=== PATIENT | female | born 1950 | race Caucasian/White ===

== ENCOUNTER → 2016-09-18 | Outpatient (CLI) | payer MEDICARE ==
[~2016-09-18] MED LIST: ASA CHILDREN'S81 MG PO; BACITRACIN15 G1 TP; CENTRUM SILVER1 EAC4 PO; COLACE-DPS100 MG PO; FLEXERIL DPS5 MG PO; HAIR SKIN NAIL1 EACH PO; HARD NAILS2500 MCG PO; NORCO 5-325 TA1 EACH PO; TYLENOL DPS325 MG PO; ZESTORETIC 20/11 TAB PO; ZOCOR DPS40 MG PO
== END | disposition home or self-care (01) ==
LOC: PTH.S 12:10
DX: Z01.818 Encounter for other preprocedural examination (principal)

== ENCOUNTER 2016-09-25 05:30 | Inpatient (IN) | payer MEDICARE ==
[~2016-09-25] VITALS: Ht 167.6 cm; Wt 85.0 kg
--- NOTE | ~2016-09-25 | DS ---
ADMIT: 09/25/2016 RM/LOC: [address] [facility] MR#: [id number] ACC#: [id number] [address] [facility] [address] [place] [id number] [address] [place] [address] Discharge Summary SEX: F AGE: 66 : 1950 ADMISSION DATE: 09/25/2016 DISCHARGE DATE: 09/28/2016 REASON FOR ADMISSION: 1. Lumbar stenosis with radiculopathy. 2. Lumbar spondylolisthesis. 3. Trauma. 4. Right hip pain. PROCEDURE: Transforaminal lumbar interbody fusion at L4-S1. HOSPITAL COURSE: Ms Rios tolerated her procedure well. Postoperatively, she was taken to the med/surg floor for monitoring and care. Postop day #1, she was awake, alert. She was afebrile, and her vital signs were stable. She was moving all extremities x4 with 5/5 strength. Her dressing was clean, dry, and intact. Her On-Q was patent. Her TIMA drain was patent with serosanguineous drainage. She was working with Physical Therapy and Occupational Therapy and tolerating this quite well. Postop day #2, she was awake and alert. She was afebrile and her vital signs were stable. She was moving all extremities x4. Her incision was clean, dry, and intact. Her On-Q was patent. Her TIMA drain was patent with serosanguineous drainage. Her On-Q was DC'd when it was empty. She continued to work with Physical Therapy and tolerated this quite well. Postop day #3, she was awake, alert, she was afebrile and her vital signs were stable. She was moving all extremities x4 with 5/5 strength. Her incision is clean, dry, and intact and no hematoma. Cerebrospinal fluid accumulation is noted. Her TIMA drain was discontinued without difficulty and she tolerated this quite well. Her Valium seems to be a little strong for her and she complains of just kind of some generalized weakness. We will stop her Valium and start her on some Flexeril. We will continue her on her hydrocodone. DISCHARGE CONDITION: Good. DISCHARGE MEDICATIONS: 1. Colace 100 mg p.o. b.i.d. 2. Bacitracin ointment to the incision every night. 3. Hydrocodone 5/325, 1-2 p.o. q.4 hours p.r.n. 4. Tylenol 650 mg p.o. q.4 hours p.r.n. 5. Simvastatin 40 mg daily. 6. Lisinopril/hydrochlorothiazide 20/12.5 mg daily. 7. Aspirin 81 mg daily. 8. Multivitamin daily. 9. Hair, skin and nails daily. 10.Biotin 5000 mcg daily. 11.Flexeril 5 mg one p.o. q.8 hours p.r.n. ADMIT: 09/25/2016 RM/LOC: 511 [facility] MR#: [id number] [address] [place] [phone] [place] [address] Discharge Summary SEX: F AGE: 66 : 1950 DISCHARGE INSTRUCTIONS: (Per Dr. Cartagena) She can have a regular diet. She may shower, she should not lift anything greater than 15 pounds. She should not take any NSAIDs. She should not drive until she is seen in clinic. She is to wear her TLSO at all times when she is out of bed. She will call with any questions or concerns including neurological worsening, signs or symptoms of infection, or any other issues. DISPOSITION: She was discharged home. Total [id number] time for the discharge planning and care coordination was 30 minutes. Amanda Hunter APRN / Rai Cartagena MD / trav JOB #: [id number] CC: Rai Cartagena MD, Attending Physician Carolina Bertrand MD, Family Physician
--- NOTE | ~2016-09-25 | OR ---
ADMIT: 09/25/2016 RM/LOC: 511 [facility] MR#: [id number] [address] [facility] [address] [place], [place] [phone] [address] [place] [address] Operative/Delivery Room Report SEX: F AGE: 66 : 1950 SURGERY DATE: 09/25/2016 SURGEON: Rai Cartagena MD PREOPERATIVE DIAGNOSES: Spondylolisthesis, grade 2, L4-L5; with severe spinal stenosis, L4-L5, L5-S1; with radiculopathy and back and hip pain. POSTOPERATIVE DIAGNOSES: Spondylolisthesis, grade 2, L4-L5; with severe spinal stenosis, L4-L5, L5-S1; with radiculopathy and back and hip pain. SPRING FITTER HELPER: Amanda Hunter APRN. PROCEDURES: 1. Wide laminectomy and facetectomy, decompressing of the thecal sac and foramen, L4-L5, L5-S1 bilaterally. 2. Anterior discectomy for arthrodesis, L4-L5, L5-S1. 3. Placement of DePuy Synthes posterior segmental pedicle screws, L4, L5, S1, with CT and fluoroscopic imaging. 4. Placement of SpineWave expandable cage, L4-L5, L5-S1, in the intervertebral space for arthrodesis. 5. Posterolateral as well as transforaminal lumbar interbody arthrodesis, L4, L5, and S1. 6. Assumption of autograft through same incision with morcellation and admixture with allograft with implant into the intervertebral spaces as well as posterolateral recesses, L4, L5, and S1. 7. Intraoperative neuromonitoring with baselines consistent with radiculopathy with tibialis anterior and gastrocnemius irritability even at baseline with no change at the end of the case. DESCRIPTION OF PROCEDURE: After gaining informed consent, the patient was taken to the operative theater and placed under general endotracheal anesthesia in a supine position and turned prone on a Hi table with all pressure points purposely padded prior to performing the procedure. She was prepped and draped in the usual sterile fashion. A time-out was utilized to ascertain the correct site and side of surgery as well as other pertinent patient historical information. Counts were obtained at the beginning and the end of the case with no change betwixt the two. Antibiotics were given within 1 hour of incision. The fluoroscope was brought into the field. L4, L5, and S1 levels were delineated. An incision was then fashioned in the midline taking this down to the thoracodorsal fascia sharply and then subperiosteally dissecting the musculature off the spinous process lamina and over top of the facets, L4, L5, and S1. Self-retaining retractors were then placed. The laminectomy was begun by resecting the posterior elements, utilizing various curettes, rongeurs, and a high-speed drill, saving in the bone and morcellating it for implant for the arthrodesis later. This was taken out widely resecting the facets as widely as necessary down to the pedicle at L5 ADMIT: 09/25/2016 RM/LOC: 511 [facility] MR#: [id number] [address] [place] [phone] [address] [place] [address] Operative/Delivery Room Report SEX: F AGE: 66 : 1950 with very wide bilateral neuroforaminal decompression, L4-L5, L5-S1, with wide central as well as lateral decompression. Once this was completed, pristine hemostasis was obtained and attention was turned to instrumentation. Utilizing fluoroscopic guidance, the pedicles were delineated and pedicle finder was passed down through the pedicle into the vertebral body, bilateral L4, L5, and S1. The holes were then sounded and screws placed. The screws were tested for breech rhythm. There was a possibility of breech based on threshold testing in the left S1, this was evaluated and I was unable to feel any sign of screw breech sounding through the pedicle. I did take the screw out and evaluated the screw hole. There was no sign of breech. Despite this, I evaluated the area and it shows a slightly more cephalad trajectory and redirected the screw, replacing it. The stimulation threshold changed minimally after this. Once this was done, attention was turned to the intervertebral cages. The system was placed under distraction and starting from the left L4-L5 and the right L5-S1, the posterior longitudinal ligaments were incised and then disk was resected, resecting cartilaginous end plates with various curettes, rongeurs, and rasps. Once things were widely resected as possible sequentially, but performed at both levels, morcellated allograft and autograft was packed into the intervertebral space. The interbody cages were then tapped in very cautiously and further bone was packed into the spaces. I evaluated anterior to the thecal sac in this region, finding no sign of any autograft or allograft outside of the disk space. Once this was completed, pristine hemostasis was obtained, a CT scan was obtained to evaluate the construct. At this time, the posterior segmental instrumentation was implanted and torqued to appropriate settings, placed in a cross connector. The thoracodorsal fascia was closed with simple interrupted 0 Vicryl, simple inverted interrupted 2-0 Vicryl was used in the hypodermic tissue, and subcuticular 3-0 Stratafix on the skin and Steri-Strips over that. The stab incisions were fashioned around the paraspinous musculature at the thoracolumbar juncture, and the ropivacaine catheter was then passed into the paraspinous musculature, loaded with 5 mL of 0.5% Marcaine on each side and ADMIT: 09/25/2016 RM/LOC: 511 [facility] MR#: [id number] [address] [place] [id number] [address] [place] [address] Operative/Delivery Room Report SEX: F AGE: 66 : 1950 connected to the ropivacaine bulb. Ms. Hunter assisted with suction, retraction, and closure at the end of the case. COMPLICATIONS: None. ESTIMATED BLOOD LOSS: Charted. SPECIMEN: Disks. DISPOSITION: Extubated and taken to postanesthesia care unit. Rai Cartagena MD/ kandi JOB #: [id number] CC: Rai Cartagena, Attending Physician Carolina Bertrand, Family Physician
[2016-09-29] MEDS ORDERED: ZOCOR DPS40 MG PO (14:28)
[2016-09-29] MEDS ORDERED: NORCO 5-325 TA1 EACH PO (14:28)
[2016-09-29] MEDS ORDERED: ASA CHILDREN'S81 MG PO (14:29)
[2016-09-29] MEDS ORDERED: ZESTORETIC 20/11 TAB PO (14:29)
[2016-09-29] MEDS ORDERED: CENTRUM SILVER1 EAC4 PO (14:30)
[2016-09-29] MEDS ORDERED: HAIR SKIN NAIL1 EACH PO (14:30)
[2016-09-29] MEDS ORDERED: COLACE-DPS100 MG PO (14:31)
[2016-09-29] MEDS ORDERED: BACITRACIN15 G1 TP (14:31)
[2016-09-29] MEDS ORDERED: HARD NAILS2500 MCG PO (14:31)
[2016-09-29] MEDS ORDERED: TYLENOL DPS325 MG PO (14:31)
[2016-09-29] MEDS ORDERED: FLEXERIL DPS5 MG PO (14:32)
== END 2016-09-28 14:02 | disposition home or self-care (01) | DRG 460 ==
LOC: WOR 07:00 → 5MS 07:00
PROVIDERS: ADMIT Neurological Surgery
PROC: 0SG30A1 (ICD-10-PCS; principal; 2016-09-25)
PROC: 0SG00A1 (ICD-10-PCS; principal; 2016-09-25)
DX: M43.16 Spondylolisthesis, lumbar region (principal); J44.9 Chronic obstructive pulmonary disease, unspecified; I10 Essential (primary) hypertension; M48.07 Spinal stenosis, lumbosacral region; M54.17 Radiculopathy, lumbosacral region; M19.90 Unspecified osteoarthritis, unspecified site; K21.9 Gastro-esophageal reflux disease without esophagitis; E78.5 Hyperlipidemia, unspecified; M54.30 Sciatica, unspecified side; Z82.49 Family history of ischemic heart disease and other diseases of the circulatory system; Z87.891 Personal history of nicotine dependence; Z79.82 Long term (current) use of aspirin